=== PATIENT | male | born 1945 | race Asian ===

== ENCOUNTER 2016-09-23 15:35 | Emergency (ER) | payer MEDICARE ==
--- NOTE | 2016-09-23 17:18 | Emergency Department Report ---
Chief Complaint: Abdominal Pain Stated Complaint: KIDNEY PAIN/CAN'T URINATE Time Seen by Provider: 09/23/16 17:09 - HPI History of Present Illness: 71-year-old male no history of hypertension comes in today for difficulty urinating since Saturday the . Patient reports is been dribbling since then he reports every 10 minutes he feels like he has to go bathroom but only able to produce a few drops. Patient also report on Saturday he had a fall and hit his lower back. Patient reportedly did apply ice to his back. 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 - Exam Vital Signs: Vital Signs 09/23/16 16:07 Temperature 97.4 F L Pulse Rate 108 H Respiratory 20 Rate Blood Pressure 177/116 O2 Sat by Pulse 99 Oximetry Physical Exam: Patient is alert and oriented 3. Patient very tearful. He reports that he's never had had this happen to him before. He does have tachycardic, respiratory clear to auscultation, abdomen soft suprapubic tenderness bowel sounds noted. MSE screening note: Focused history and physical exam performed. Due to findings the following was ordered: UA urine culture CBC CMP CT of abdomen and pelvic ED Disposition for MSE Condition: Stable
[2016-09-23 17:52] LABS: Hematocrit 42.8 % (35.5-45.6); Hemoglobin 14.3 gm/dl (11.8-15.2); Mean Corpuscular HGB Conc 33 % (32-34); Mean Corpuscular Hemoglobin 29 pg (28-32); Mean Corpuscular Volume 88 fl (84-94); Platelet Count 317 K/mm3 (140-440); Red Blood Count 4.87 M/mm3 (3.65-5.03); Red Cell Distribution Width 15.6 % (13.2-15.2); White Blood Count 10.8 K/mm3 (4.5-11.0)
[2016-09-23 18:09] LABS: BUN/Creatinine Ratio 16.15; Bilirubin,Total 0.7 mg/dL (0.1-1.2); Calcium 9.4 mg/dL (8.4-10.2); Chloride 99.1 mmol/L (98-107); Potassium 4.1 mmol/L (3.6-5.0)
--- NOTE | 2016-09-23 18:34 | Cat Scan Report ---
FINAL REPORT PROCEDURE: CT ABDOMEN PELVIS WO CON TECHNIQUE: Computerized axial tomography of the abdomen and pelvis was performed without intravenous contrast. This study is performed without intravascular contrast material and its sensitivity for abdominal and pelvic pathology, including neoplasms, inflammation, abscess, free fluid, thrombosis, arterial dissection and infarction, is reduced compared with a contrast enhanced study. . HISTORY: urinary incontinence and fall on Saturday COMPARISON: No prior studies are available for comparison. FINDINGS: Visualized lower thorax: No significant abnormality. Liver: Normal size and attenuation. Spleen: Normal size and attenuation. Gallbladder and biliary system: Normal. Pancreas: Normal. Adrenals: Normal. Kidneys: There is bilateral hydroureteronephrosis and perinephric strandy change. No urolithiasis GI tract: Appendix is not diagnostically visualized. Moderate volume of stool seen in the right colon. No evidence of bowel obstruction or acute inflammation.. Lymph nodes and mesentery: Normal. Vasculature: Normal. Bladder: Significantly distended, concerning for bladder outlet obstruction. Reproductive organs: Prostate gland measures up to 5.7 centimeters transverse. Peritoneum: No free fluid. Musculoskeletal structures: Degenerative disc changes at L4-5. Other: None. IMPRESSION: Findings are concerning for bladder outlet obstruction. The urinary bladder is significantly distended, and there is moderate, significant bilateral hydroureteronephrosis. Enlarged prostate gland.
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
[2016-09-23 20:34] LABS: Bilirubin,Urine NEG (Negative); Blood,Urine SM (Negative); Ketones,Urine NEG (Negative); Leukocyte Esterase,Urine TR (Negative); Mucus,Urine FEW /HPF; Nitrite,Urine NEG (Negative); Protein,Urine <15 mg/dL mg/dL (Negative); Urobilinogen,Urine < 2.0 mg/dL (<2.0)
[2016-09-23 21:37] VITALS: BP 176/88
== END 2016-09-23 22:14 | disposition home or self-care (01) ==
LOC: ED 15:35
DX: N40.0 Benign prostatic hyperplasia without lower urinary tract symptoms (principal); N13.30 Unspecified hydronephrosis; R33.9 Retention of urine, unspecified; I10 Essential (primary) hypertension; F17.200 Nicotine dependence, unspecified, uncomplicated
CPT/HCPCS: 36415; 51702; 74176; 80053; 81001; 85027; 87086

== ENCOUNTER 2016-11-06 22:57 | Emergency (ER) | payer MEDICARE ==
[2016-11-06 23:13] VITALS: BP 173/98
== END 2016-11-07 00:55 | disposition left against medical advice (07) ==
LOC: ED 22:57
DX: T85.9XXA Unspecified complication of internal prosthetic device, implant and graft, initial encounter (principal); Z53.21 Procedure and treatment not carried out due to patient leaving prior to being seen by health care provider; Y92.9 Unspecified place or not applicable

== ENCOUNTER 2017-07-03 23:08 | Emergency (ER) | payer MEDICARE ==
[2017-07-04 01:27] VITALS: BP 159/91
[2017-07-04 02:37] LABS: Bacteria,Urine 2+ /HPF (Negative); Mucus,Urine FEW /HPF
[2017-07-04 02:49] LABS: Bilirubin,Urine Negative (Negative); Ketones,Urine Negative (Negative)
[2017-07-04 02:50] LABS: Blood,Urine Moderate (Negative)
[2017-07-04 02:51] LABS: Leukocyte Esterase,Urine Moderate (Negative); Nitrite,Urine Positive (Negative); Urobilinogen,Urine < 2.0 mg/dL (<2.0)
--- NOTE | 2017-07-04 03:02 | Emergency Department Report ---
Blank Doc - Documentation Documentation: Patient presented with urinary retention. Catheter placed by the nurse with reported 1.2 L urine output and relief in symptoms. Blood pressure also improved after catheterization. UA shows positive infection. Patient left prior to being evaluated by myself or and MD and left after De La Cruz catheter placement. I attempted to call number on record and it went straight to voicemail. We will complete an elopement/callback note for staff to reach out the patient in the morning
--- NOTE | 2017-07-04 03:03 | ED Elopement Review ---
ED Pt Elopement review - Results review Lab results: Laboratory Tests 07/04/17 00:40 Urine Color Yellow Urine Turbidity Hazy Urine pH 6.0 Ur Specific [place] 1.015 Urine Protein 100 mg/dl Urine Glucose (UA) Negative Urine Ketones Negative Urine Blood Moderate A Urine Nitrite Positive Ur Reducing Substances Not Reportable Urine Bilirubin Negative Urine Ictotest Not Reportable Urine Urobilinogen < 2.0 Ur Leukocyte Esterase Moderate Urine WBC (Auto) 13.0 H Urine RBC (Auto) 123.0 U Epithel Cells (Auto) < 1.0 Urine Bacteria (Auto) 2+ Amorphous Crystals 1+ Urine Mucus Few - Call Back decision Pt Call Back Decision: Call pt to return to ED [facility] (need treatment for UTI)
== END 2017-07-04 02:20 | disposition left against medical advice (07) ==
LOC: ED 23:08
DX: R33.9 Retention of urine, unspecified (principal); Z53.21 Procedure and treatment not carried out due to patient leaving prior to being seen by health care provider
CPT/HCPCS: 51702; 81001; 87086